=== PATIENT | male | born 1975 | race Caucasian/White ===

== ENCOUNTER → 2019-10-19 | Emergency (ER) | payer BC ==
--- NOTE | 2019-11-30 11:03 | ECGEPIP ---
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
== END | disposition home or self-care (01) ==
LOC: M ED 16:45
DX: I95.1 Orthostatic hypotension (principal); F17.220 Nicotine dependence, chewing tobacco, uncomplicated

== ENCOUNTER 2022-04-08 09:12 | Emergency (ER) | payer OTHER, BC ==
[~2022-04-08] VITALS: Ht 175.3 cm; Wt 71.8 kg
[2022-04-08] MEDS ORDERED: NS 1,000 ML IV ONE (11:20)
[2022-04-08] MEDS ORDERED: ISOVUE-370 76% 100ML VIAL As Ordered ONE (11:47)
[2022-04-08 11:50] LABS: BASO # 0.1 10^3/uL (0.0-0.2); BASO % 0.4 % (0.0-1.0); EOS % 0.2 % (0.0-3.0); HEMATOCRIT 43.4 % (42.0-52.0); HEMOGLOBIN 14.5 g/dl (13.5-17.5); LYMPH # 0.7 10^3/uL (1.5-5.0); MEAN CORPUSCULAR HEMOGLOBIN 30.6 pg (27.0-33.0); MEAN CORPUSCULAR HGB CONC 33.4 g/dl (32.0-36.5); MEAN CORPUSCULAR VOLUME 91.6 fl (80.0-96.0); MONO # 1.3 10^3/uL (0.0-0.8); MONO % 6.9 % (2.0-8.0); NEUTROPHILS # 16.2 10^3/uL (1.5-8.5); NEUTROPHILS % 87.8 % (36.0-66.0); PLATELET COUNT, AUTOMATED 262 10^3/uL (150-450); RED BLOOD COUNT 4.74 10^6/uL (4.30-6.10); WHITE BLOOD COUNT 18.4 10^3/uL (4.0-10.0)
[2022-04-08] MEDS ORDERED: MORPHINE 4 MG/ML 1ML VIAL IV ONE (12:50)
[2022-04-08] MEDS ORDERED: ONDANSETRON 4MG 2ML VIAL IV ONE (12:50)
[2022-04-08] MEDS ORDERED: MIRA3350 PO (13:37)
[2022-04-08] MEDS ORDERED: PERC5TAB12 PO (13:37)
[2022-04-08 13:46] VITALS: BP 123/58
== END 2022-04-08 14:01 | disposition home or self-care (01) ==
LOC: EDBD 09:12 → M ED 09:12
DX: S22.22XA Fracture of body of sternum, initial encounter for closed fracture (principal); R91.1 Solitary pulmonary nodule; M54.50 Low back pain, unspecified; R00.1 Bradycardia, unspecified; V49.40XA Driver injured in collision with unspecified motor vehicles in traffic accident, initial encounter; Z79.82 Long term (current) use of aspirin; Z79.899 Other long term (current) drug therapy
CPT/HCPCS: 71260; 72125; 80047; 85025; 86850; 86900; 86901; 93005; 96374; 99284; J2270; J2405